=== PATIENT | female | born 1995 | race Hispanic/Latino ===

== ENCOUNTER 2024-09-10 19:21 | Emergency (ER) | payer OTHER ==
[~2024-09-10] VITALS: Ht 167.6 cm; Wt 72.6 kg
[2024-09-10 19:33] VITALS: PULSE 61; RESP 16; TEMP 98.4; O2SAT 100
[2024-09-10] MEDS: KETOROLAC TROMETHAMINE 60 MG/2 ML VIAL IM ONE (19:48)
[2024-09-10] MEDS: CYCLOBENZAPRINE HCL 10 MG TAB PO ONE (19:48)
[2024-09-10] MEDS ORDERED: KETOROLAC TROMETHAMINE 60 MG/2 ML VIAL ONE (19:51)
[2024-09-10] MEDS ORDERED: CYCLOBENZAPRINE10 MG PO (20:27)
== END 2024-09-10 20:46 | disposition home or self-care (01) ==
LOC: ER 19:30
DX: M54.12 Radiculopathy, cervical region (principal); R51.9 Headache, unspecified; Z98.84 Bariatric surgery status
CPT/HCPCS: 99283; J1885